=== PATIENT | female | born 1970 | race African-American/Black ===

== ENCOUNTER 2019-01-09 09:05 | Day surgery (SDC) | payer BC, OTHER ==
[~2019-01-09] VITALS: Ht 175.3 cm; Wt 105.9 kg
[~2019-01-09 09:05] MED LIST: ADIPEX-P37.5 MG PO; HYDROCHLOROTHIA25 M2 PO; LISINOPRIL40 MG PO; NORVASC5 MG PO
[2019-01-09 09:46] LABS: CALCIUM 9.3 mg/dL (8.5-10.1); CREATININE 0.9 mg/dL (0.6-1.0); POTASSIUM 3.9 mmol/L (3.5-5.1)
[2019-01-09 10:33] VITALS: BP 123/83
[2019-01-09] MEDS ORDERED: NORCO 5-325 TA1 EAC1 PO (13:06)
[2019-01-09 13:46] VITALS: BP 123/83
[2019-01-10] MEDS ORDERED: ZPAK PO ×2 (08:37→08:44)
--- NOTE | 2019-01-11 13:17 | EKG ---
[address] [facility] [place] [address] ELECTROCARDIOGRAM REPORT Name: GRAEME ROJAS Room #: DEP [facility].Sarah#: [id number] Admission: 01/09/19 Attend Phys: Bobo Watt MD Discharge: 01/09/19 Date of : 74 Report #: [id number] THIS REPORT FOR: //name// [facility] Test Date: 2019-01-09 Test Time: 09:55:25 Pat Name: GRAEME ROJAS Department: Room: 150 7 Gender: F Residential Program Director: JACIEL : 1970 Requested By: Leonardo Lao Order Number: [id number] MD: Emanuel Saunders Measurements Intervals [place] Rate: 70 P: 15 [place]: 170 QRS: -4 QRSD: 93 T: 24 QT: 420 QTc: 454 Interpretive Statements Sinus rhythm Normal tracing No previous ECG available for comparison Electronically Signed On 01-11-2019 13:17:14 CDT by Emanuel Saunders [email or web address] <ELECTRONICALLY SIGNED> By: Emanuel Saunders MD, [facility] 01/11/19 1317 0955 0955 Emanuel Saunders MD, FACC /EPI
--- NOTE | 2019-01-12 23:06 | PATH ---
[facility] [address] [place] [address] PATHOLOGY RPT PROCEDURE Name: GRAEME ROJAS Room #: DEP [place] M.R.#: [id number] Admission: 01/09/19 Date of : 74 Discharge: 01/09/19 Report #: [id number] Path Case #: [id number] [facility] Accession Number: [id number] . 01 Material submitted: . hernia - HERNIA SAC AND OMENTUM . 01 Clinical history: . Incarcerated ventral hernia repair with mesh . 02 Diagnosis: "Hernia sac and omentum", hernia repair and omentectomy: - Vascularized fibroadipose connective tissue consistent with hernia sac showing reactive mesothelial hyperplasia, acute and chronic inflammation and focal fat necrosis. - Omentum showing mature adipose tissue with vascular congestion, focal fibrosis and chronic inflammation. (CLW:benjamin; 01/12/2019) QMS 01/12/2019 1157 Local . 02 Electronically signed: . Ana Paula Barfield MD, Pathologist NPI- [id number] . 01 Gross description: . The specimen is received in formalin, labeled "[place], Graeme, hernia sac and omentum", consists of fibromembranous and fibroadipose tissue measuring 13.2 x 6.5 x 1.0 cm in aggregate. Representatively submitted in A1. ([facility]; 01/09/2019) [facility] 01/12/2019 1156 Local . 02 Pathologist provided ICD-10: K65.9, K43.6 . 02 CPT . 546997, 559464 Specimen Comment: A courtesy copy of this report has been sent to Specimen Comment: [phone]. Specimen Comment: Report sent to Performed at: [address], [place] [id number] MD Jamie Leiva MD Phone: [phone] Performed at: [address] [id number] MD Julianne Villarreal MD Phone: [phone]
--- NOTE | 2019-02-24 12:03 | O ---
[facility] [place] [address] OPERATIVE REPORT Name: GRAEME ROJAS Room #: DEP [facility]..#: [id number] Admission: 01/09/19 Attend Phys: Bobo Watt MD Discharge: 01/09/19 Date of : 74 Report #: [id number] THIS REPORT FOR: //name// CC: MCKENZIE physician/PCP Adan Watt DATE OF SERVICE: 01/09/2019 PREOPERATIVE DIAGNOSIS: Incarcerated ventral hernia. POSTOPERATIVE DIAGNOSIS: Incarcerated ventral hernia with omentum stuck in the hernia sac. PROCEDURES PERFORMED: Repair of incarcerated ventral hernia with resection of segment of omentum. SURGEON: Bobo Watt MD ANESTHESIA: General anesthesia. COMPLICATIONS: None. ESTIMATED BLOOD LOSS: 5 mL. PROCEDURE NOTE: With the patient under general anesthesia, abdomen was prepped and draped in sterile fashion. Timeout was performed. The patient did receive IV antibiotics. A 0.25% Marcaine was used to anesthetize the skin at the incision site. A transverse incision about 5 cm was made over the hernia. The hernia sac was found in the subcutaneous tissue, hernia sac measured about 5-6 cm in diameter. This was free from the surrounding subcutaneous tissue down to the fascia level. The fascia defect is about 2 cm. The content was not able to be reduced. The herniated tissue was dissected and turns out to be a pretty large sized sac with omental fat. The omentum was freed, tried to reduce it, but was too big to put back in. Partial resection of the omentum was then performed. The omentum was divided over a clamp and then ligated with 2-0 Vicryl tie. After a part of the omentum was removed, I opened up the fascia on the left side just slightly. This allowed the omentum to be reduced. The hernia sac was then trimmed off and then was closed with 4-0 PDS in running fashion. The hernia sac was then put back into the properitoneal space. Properitoneal dissection was then carried out creating a properitoneal space, opening up the properitoneal space for the Ventralex patch. Cautery and blunt dissection was performed. Once the properitoneal space was opened up, irrigation was performed, hemostasis obtained. I did try a large-sized Ventralex patch which I thought I had created enough of an opening, but the left side of it was folded up. I could not get it to straighten out. The mesh was [facility] [address] [place] [address] OPERATIVE REPORT Name: GRAEME ROJAS Room #: DEP [place] M.Tanya.#: [id number] Admission: 01/09/19 Attend Phys: Bobo Watt MD Discharge: 01/09/19 Date of : 74 Report #: [id number] removed and this medium size Ventralex patch was placed. The medium sized Ventralex patch opened up easily. The fascia edges were trimmed and then fascia was closed with horizontal mattress suture of 0 Prolene suture. Three separate sutures were placed. This incorporated the strap of the Ventralex patch. The strap was then cut at the fascial level. Irrigation was performed in the subcutaneous tissue. Skin was then closed with 5-0 PDS. Steri-Strip, 4 x 4, OpSite used for dressing. The patient awakened and taken to recovery room having tolerated the procedure well. <ELECTRONICALLY SIGNED> By: Bobo Watt MD 02/24/19 1203 52 08 Bobo Watt MD /nt
== END 2019-01-09 15:15 | disposition home or self-care (01) ==
LOC: OR 09:05 → TBA 09:10 → OR 11:22
PROVIDERS: Anesthesiology
DX: K43.6 Other and unspecified ventral hernia with obstruction, without gangrene (principal); K65.9 Peritonitis, unspecified; I10 Essential (primary) hypertension; K21.9 Gastro-esophageal reflux disease without esophagitis; Z98.51 Tubal ligation status; Z87.891 Personal history of nicotine dependence; Z79.899 Other long term (current) drug therapy; Z98.890 Other specified postprocedural states
CPT/HCPCS: 50010; 50101; 50130; 50386; 50403; 56525; 56526; 62110; 62900; 70005

== ENCOUNTER 2019-01-10 07:15 | Emergency (ER) | payer BC, OTHER ==
[~2019-01-10] VITALS: Ht 167.6 cm; Wt 102.1 kg
[~2019-01-10 07:15] MED LIST changes: +NORCO 5-325 TA1 EAC1 PO
[2019-01-10 07:55] LABS: ABSOLUTE NEUTROPHILS 14.2 thou/uL (1.4-8.2); BASOPHILS 0.4 % (0.0-2.0); HEMATOCRIT 36.3 % (37.0-47.0); HEMOGLOBIN 11.8 gm/dL (12.0-15.0); LYMPHOCYTES 10.4 % (24.0-44.0); MCH 28.9 pg (26.0-34.0); MCHC 32.5 g/dL (28.0-37.0); MCV 88.9 fL (80.0-100.0); MONOCYTES 5.6 % (1.0-8.0); PLATELET COUNT 338 thou/uL (150-400); POLYS 83.6 % (36.0-66.0); RBC 4.09 mil/uL (4.20-5.00)
[2019-01-10 08:03] LABS: ANION GAP 6 mmol/L (7-16); BUN 12 mg/dL (7-18); CALCIUM 9.2 mg/dL (8.5-10.1); CHLORIDE 106 mmol/L (98-107); CO2 27 mmol/L (21-32); CREATININE 0.8 mg/dL (0.6-1.0); GLUCOSE 126 mg/dL (74-106); POTASSIUM 4.7 mmol/L (3.5-5.1); SODIUM 139 mmol/L (136-145)
[2019-01-10 08:11] LABS: TROPONIN-I <0.06 ng/mL (<0.06)
[2019-01-10] MEDS ORDERED: ZPAK PO ×2 (08:37→08:44)
[2019-01-10 09:04] VITALS: BP 127/82
--- NOTE | 2019-01-11 13:24 | EKG ---
[place] [address] [employer] [address] ELECTROCARDIOGRAM REPORT Name: GRAEME ROJAS Room #: CRISTINA Coronado#: [id number] Admission: 01/10/19 Attend Phys: Discharge: 01/10/19 Date of : 74 Report #: [id number] THIS REPORT FOR: //name// [facility] ED Test Date: 2019-01-10 Test Time: 07:22:23 Pat Name: GRAEME ROJAS Department: Room: Gender: F Pen Tester: : 1970 Requested By: Mila Rivera Order Number: [id number] MD: Emanuel Saunders Measurements Intervals [place] Rate: 63 P: 18 [place]: 161 QRS: 9 QRSD: 109 T: 20 QT: 429 QTc: 440 Interpretive Statements Sinus rhythm Normal tracing No previous ECG available for comparison Electronically Signed On 01-11-2019 13:23:55 CDT by Emanuel Saunders [email or web address] <ELECTRONICALLY SIGNED> By: Emanuel Saunders MD, [facility] 01/11/19 1323 0722 0722 Emanuel Saunders MD, FACC /EPI
== END 2019-01-10 09:57 | disposition home or self-care (01) ==
LOC: ER 07:15
PROVIDERS: Emergency Medicine
DX: J18.9 Pneumonia, unspecified organism (principal); I10 Essential (primary) hypertension; K21.9 Gastro-esophageal reflux disease without esophagitis; Z98.51 Tubal ligation status; Z87.891 Personal history of nicotine dependence; Z91.012 Allergy to eggs

== ENCOUNTER 2019-03-19 16:29 | Emergency (ER) | payer BC, OTHER ==
[~2019-03-19] VITALS: Ht 165.1 cm; Wt 104.3 kg
[~2019-03-19 16:29] MED LIST changes: +ZPAK PO
[2019-03-19 17:27] LABS: URINE BILIRUBIN NEGATIVE (Negative); URINE BLOOD NEGATIVE (Negative); URINE CLARITY CLEAR; URINE COLOR YELLOW; URINE GLUCOSE-RANDOM* NEGATIVE (Negative); URINE KETONES NEGATIVE (Negative); URINE LEUKOCYTES-REFLEX NEGATIVE (Negative); URINE NITRITE-REFLEX NEGATIVE (Negative); URINE PROTEIN (DIPSTICK) 2+ (Negative)
[2019-03-19 17:40] LABS: BACTERIA-REFLEX None Seen /HPF (None Seen); CRYSTALS None Seen /LPF (None Seen); HYALINE CASTS 0-3 Few /LPF (None Seen); MUCUS 4-6 Moderate strn/LPF (None Seen); SQUAMOUS >10 Many /LPF (0-3); URINE RBC 0-2 Rare /HPF (0-2); URINE WBC-REFLEX 0-5 Rare /HPF (0-5)
[2019-03-19 17:43] LABS: ABSOLUTE NEUTROPHILS 5.4 thou/uL (1.4-8.2); BASOPHILS 0.6 % (0.0-2.0); EOSINOPHILS 0.2 % (0.0-3.0); HEMATOCRIT 39.1 % (37.0-47.0); HEMOGLOBIN 13.3 gm/dL (12.0-15.0); LYMPHOCYTES 12.6 % (24.0-44.0); MCH 29.5 pg (26.0-34.0); MCHC 34.1 g/dL (28.0-37.0); MCV 86.6 fL (80.0-100.0); MONOCYTES 5.6 % (1.0-8.0); PLATELET COUNT 370 thou/uL (150-400); RBC 4.51 mil/uL (4.20-5.00); RDW 12.7 % (10.5-14.5); WBC 6.6 thou/uL (4.0-11.0)
[2019-03-19 17:49] LABS: CALCIUM 9.4 mg/dL (8.5-10.1); CREATININE 0.9 mg/dL (0.6-1.0); POTASSIUM 3.6 mmol/L (3.5-5.1)
[2019-03-19 17:55] LABS: ALBUMIN 3.7 g/dL (3.4-5.0); DIRECT BILIRUBIN 0.1 mg/dL (<0.1-0.2); TOTAL BILIRUBIN 0.4 mg/dL (<0.1-1.0); TOTAL PROTEIN 8.2 g/dL (6.4-8.2)
[2019-03-19] MEDS ORDERED: ONDANSETRON HCL4 M2 PO (20:32)
[2019-03-19 20:46] VITALS: BP 121/79
--- NOTE | 2019-03-20 07:58 | EKG ---
[place] [address] [facility] [place] [address] ELECTROCARDIOGRAM REPORT Name: GRAEME ROJAS Room #: CRISTINA Coronado#: [id number] Admission: 03/19/19 Attend Phys: Discharge: 03/19/19 Date of : 74 Report #: [id number] THIS REPORT FOR: //name// [facility] ED Test Date: 2019-03-19 Test Time: 17:37:12 Pat Name: GRAEME ROJAS Department: Room: Gender: [employer] Supervisor: TONNY : 1970 Requested By: Vishal Byrnes Order Number: [id number] MD: Emanuel Saunders Measurements Intervals [place] Rate: 77 P: 26 [place]: 160 QRS: 20 QRSD: 80 T: 54 QT: 391 QTc: 443 Interpretive Statements Sinus rhythm Normal tracing Compared to ECG 01/10/2019 07:22:23 No significant changes Electronically Signed On 03-20-2019 7:57:44 HOP GROWER by Emanuel Saunders [email or web address] <ELECTRONICALLY SIGNED> By: Emanuel Saunders MD, [facility] 03/20/19 0757 1737 1737 Emanuel Saunders MD, FACC /EPI
== END 2019-03-19 20:47 | disposition home or self-care (01) ==
LOC: ER 16:29
PROVIDERS: Nurse Practitioner
DX: E86.0 Dehydration (principal); R11.2 Nausea with vomiting, unspecified; I10 Essential (primary) hypertension; K21.9 Gastro-esophageal reflux disease without esophagitis; Z87.891 Personal history of nicotine dependence; Z91.012 Allergy to eggs; Z79.899 Other long term (current) drug therapy; Z98.51 Tubal ligation status

== ENCOUNTER 2021-01-19 04:43 | Emergency (ER) | payer BC, OTHER ==
[~2021-01-19] VITALS: Ht 167.6 cm; Wt 98.4 kg
[~2021-01-19 04:43] MED LIST changes: +ONDANSETRON HCL4 M2 PO
[2021-01-19] MEDS ORDERED: CLARAVIS40 MG PO (05:15)
[2021-01-19] MEDS ORDERED: HYDROCHLOROTHIA25 M1 PO (05:16)
[2021-01-19] MEDS ORDERED: NORVASC10 MG PO (05:16)
[2021-01-19 05:40] LABS: ABSOLUTE NEUTROPHILS 3.6 thou/uL (1.4-8.2); BASOPHILS 2.1 % (0.0-2.0); EOSINOPHILS 1.4 % (0.0-3.0); HEMATOCRIT 35.6 % (37.0-47.0); LYMPHOCYTES 36.4 % (24.0-44.0); MCH 28.9 pg (26.0-34.0); MCHC 33.6 g/dL (28.0-37.0); MCV 86.1 fL (80.0-100.0); MONOCYTES 6.8 % (1.0-8.0); PLATELET COUNT 377 thou/uL (150-400); POLYS 53.3 % (36.0-66.0); RBC 4.14 mil/uL (4.20-5.00); WBC 6.8 thou/uL (4.0-11.0)
[2021-01-19 05:59] LABS: CREATININE 0.8 mg/dL (0.6-1.0); POTASSIUM 3.3 mmol/L (3.5-5.1)
[2021-01-19] MEDS ORDERED: MOBIC15 MG PO (06:35)
[2021-01-19 06:42] VITALS: BP 104/70
--- NOTE | 2021-01-19 07:26 | EKG ---
[place] [address] [facility] [place] [address] ELECTROCARDIOGRAM REPORT Name: GRAEME ROJAS Room #: CRISTINA Coronado#: [id number] Admission: 01/19/21 Attend Phys: Discharge: 01/19/21 Date of : 74 Report #: [id number] [facility] ED Test Date: 2021-01-19 Test Time: 05:02:29 Pat Name: GRAEME ROJAS Department: Room: Gender: F It Sales Executive: LEWIS : 1970 Requested By: Mila Rivera Order Number: [id number] MD: Addison Saxena Measurements Intervals [place] Rate: 65 P: 32 [place]: 180 QRS: -5 QRSD: 92 T: 10 QT: 419 QTc: 436 Interpretive Statements Sinus rhythm Compared to ECG 03/19/2019 17:37:12 No significant changes Electronically Signed On 01-19-2021 7:26:18 CDT by Addison Saxena [email or web address] <ELECTRONICALLY SIGNED> By: Addison Saxena MD, [facility] 01/19/21 0726 0502 0502 Addison Saxena MD, FACC /EPI
== END 2021-01-19 06:48 | disposition home or self-care (01) ==
LOC: ER 04:43
PROVIDERS: Emergency Medicine
DX: R07.89 Other chest pain (principal); I10 Essential (primary) hypertension; K21.9 Gastro-esophageal reflux disease without esophagitis; Z79.891 Long term (current) use of opiate analgesic; Z79.899 Other long term (current) drug therapy; Z91.012 Allergy to eggs; Z87.891 Personal history of nicotine dependence